=== PATIENT | female | born 1955 | race Caucasian/White ===

== ENCOUNTER 2018-03-07 08:24 | Day surgery (SDC) | payer OTHER, MEDICARE ==
[2018-03-02 15:59] VITALS: BMI 24.8
[2018-03-07] MEDS ORDERED: PROPOFOL 20 ML ONE ×2 (08:28)
[2018-03-07] MEDS ORDERED: LIDOCAINE HCL/PF 2% SDV 5ML VIAL ONE (08:29)
[2018-03-07 12:49] VITALS: BP 123/75; PULSE 80; TEMP 97.8
--- NOTE | 2018-03-08 15:53 | PATH ---
Surgical Pathology Report Patient Name: [facility]. Rec. #: [id number] /Age/Gender: 1955 (Age: 62) / F Account: [id number] Location: [facility]-ENDOSCOPY Taken: 03/07/2018 Received: 03/07/2018 Reported: 03/08/2018 Physicians: Walter Mitchell M.D. Specimen(s) Received RECTUM Clinical History Change in bowel habits Postoperative diagnosis: Rule out microscopic colitis Final Diagnosis RECTUM, BIOPSY: COLONIC MUCOSA WITH FOCAL EXTRAVASATION OF RED BLOOD CELLS WITHIN LAMINA PROPRIA AND SMALL LYMPHOID AGGREGATE. NO FEATURES OF MICROSCOPIC/LYMPHOCYTIC COLITIS IDENTIFIED. Electronically Signed Lelo Carmichael M.D. Gross Description Received in formalin, labeled "rectum" are 3 hooks, irregular portions of soft tissue ranging from 0.3-0.7 cm. in greatest dimension. The specimens are submitted in toto in one cassette. 03/07/201803/07/2018
== END 2018-03-07 13:10 | disposition home or self-care (01) ==
LOC: FASU-ENDO 08:24
PROVIDERS: ATTEND Internal Medicine Gastroenterology
PROC: 0DBP8ZX Excision of Rectum, Via Natural or Artificial Opening Endoscopic, Diagnostic (ICD-10-PCS; principal; 2018-03-07 12:01)
PROC: 0DBN8ZX Excision of Sigmoid Colon, Via Natural or Artificial Opening Endoscopic, Diagnostic (ICD-10-PCS; 2018-03-07 12:01)
DX: R19.4 Change in bowel habit (principal); R19.7 Diarrhea, unspecified
CPT/HCPCS: 88305-TC